=== PATIENT | female | born 1965 | race Caucasian/White ===

== ENCOUNTER 2023-08-11 19:20 | Emergency (ER) | payer OTHER, SELFPAY ==
--- NOTE | 2023-08-11 19:23 | ED.URI ---
HPI - URI/Sore Throat General Chief Complaint: Upper Respiratory Infection Stated Complaint: something wrong with mouth, sore throat Time Seen by Provider: 08/11/23 19:23 Source: patient Mode of arrival: ambulatory Limitations: no limitations History of Present Illness HPI Narrative: Yola is a 58-year-old female patient presenting to the clinic today with complaints of a sore throat. She reports this has been going on for few days. States that she started having URI symptoms while on a cruise however her URI symptoms have improved. Reports a burning sensation in her mouth-tongue, cheeks, gums, uvula, and oropharyngeal area Related Data Home Medications Medication Instructions Recorded Confirmed aspirin 81 mg chewable tablet 81 mg PO DAILY 08/11/23 08/11/23 esomeprazole magnesium 20 mg 20 mg PO DAILY 08/11/23 08/11/23 tablet,delayed release (Nexium 24HR) levothyroxine 150 mcg tablet 150 mcg PO DAILY 08/11/23 08/11/23 metoprolol succinate 25 mg 25 mg PO DAILY 08/11/23 08/11/23 tablet,extended release 24 hr Allergies Allergy/AdvReac Type Severity Reaction Status Date / Time azithromycin AdvReac Severe FLUSHED, Verified 08/11/23 19:30 EDMOND, HEART RACING AND CHEST PAIN. famotidine AdvReac Intermediate FLUSHING Verified 08/11/23 19:30 AND FEELING WIERD. Sulfa (Sulfonamide AdvReac Mild Rash Verified 08/11/23 19:30 Antibiotics) Review of Systems Review of Systems: Pertinent positives per HPI. Patient denies any fever, chills, rash, headache, visual changes, dizziness, cough, runny nose, sore throat, shortness of breath, chest pain, palpitations, nausea, vomiting, diarrhea, constipation, abdominal pain, or any urinary issues. PMFSH Comments At the time of my signature, I reviewed and agree with the nursing past medical, surgical, social, and family history. There is no relevant family history pertinent to the patient complaint. Exam Narrative: General: Well-developed, obese, in no apparent distress Head: Normocephalic, atraumatic Eyes: Pupils equally round and reactive to light bilaterally, EOM intact, sclera and conjunctive clear, no discharge, lids normal Ears: TMs intact and clear, ear canals clear, no drainage, grossly hearing normal. Nose: Nares patent, no discharge, no inflammation, no sinus tenderness. Mouth: Oropharynx red without lesions or masses, good dentition, MMM. No obvious thrush Neck: Supple, trachea midline, no enlargement of anterior or posterior cervical nodes, no thyroid masses or goiter palpable. Cardio: Regular rate and rhythm, s1 and s2 normal, no murmur appreciated. Resp: Clear to auscultation bilaterally anteriorly and posteriorly, no rhonchi, rales, wheezing or rubs Course Course Emergency Course: Portions of this record may have been created with voice recognition software. Level of Care: Express Care Visit Vital Signs Vital signs: Vital signs reviewed MDM - URI/Sore Throat MDM Narrative Medical decision making narrative: At the time of visit patient is resting comfortably on the exam table. Patient appears to be nontoxic. Labs: Strep test was negative. We will send strep for culture. Plan: Explained to the patient that we were unable to do any throat cultures other than the strep test. Recommend follow-up with her PCP/ENT for further evaluation if symptoms do not improve. Supportive measures were discussed with the patient and they voiced understanding discharge instructions and agrees to treatment plan. Return precautions reviewed Differential Diagnosis Differential diagnosis: Likely upper respiratory infection, otitis media, sinusitis, viral infection, bronchitis, influenza, pharyngitis and other (COVID) Discharge Plan Discharge Clinical Impression: Pharyngitis Qualifiers: Pharyngitis/tonsillitis etiology: unspecified etiology Qualified Code(s): J02.9 - Acute pharyngitis, unspecified Patient Disp
[2023-08-11 19:36] VITALS: BP 138/82; PULSE 63; RESP 16; TEMP 36.3; O2SAT 98
== END 2023-08-11 19:51 | disposition home or self-care (01) ==
PROVIDERS: Emergency Provider Nurse Practitioner Family
DX: J02.9 Acute pharyngitis, unspecified (principal); I10 Essential (primary) hypertension; K21.9 Gastro-esophageal reflux disease without esophagitis; E03.9 Hypothyroidism, unspecified; Z86.16 Personal history of COVID-19
CPT/HCPCS: 87081; 87880; 99213; G0463